=== PATIENT | male | born 1985 | race African-American/Black ===

== ENCOUNTER 2018-01-20 14:09 | Inpatient (IN) | payer OTHER ==
[2018-01-20 14:54] VITALS: BMI 19.1
--- NOTE | 2018-01-20 16:07 | HP ---
CIWA Score - CIWA Score Nausea/Vomitin Muscle Tremors: 1-None Visible, but [place] Anxiety: 3 Agitation: 1-Slight > Activity Paroxysmal Sweats: 3 Orientation: 0-Oriented Tacttile Disturbances: 0-None Auditory Disturbances: 2-Mild Harshness/Frighten Visual Disturbances: 0-None Headache: 3-Moderate CIWA-Ar Total Score: 15 Admission ROS S - HPI Chief Complaint: Etoh wtihdrawal symptoms. Allergies/Adverse Reactions: Allergies Allergy/AdvReac Type Severity Reaction Status Date / Time bupropion [From Wellbutrin] Allergy Severe Verified 01/20/18 16:04 divalproex sodium Allergy Severe Verified 01/20/18 16:04 [From Depakote] History of Present Illness: Patient is 32 year old man presenting with ETOH withdrawal symptoms. Patient started drinking at age 7 and drinks up to 2 pints of liquor daily.Last drink was this past night. Patient states this is his first detox attempt. Has hx of blackouts, seizures and has his first drink in the morning with his coffee. Last seizure 11/2017. Patient also smokes 20 dollars of crack/cocaine daily since 2006. Last time he smoke was 2 days ago. Hx of sniffing one bag of heroin every 6 months since 2008, Marajuana use daily since age 11, one 10 dollar bag a day. Last use 3 days ago, crystal meth use monthly, last use 3 days ago. Patient has pmh of HIV+ (noncompliant with medication x one month), schizophrenia and chronic back pain. Denies SI/HI. Attempted suicide in 2012 by pill overdose. Longest period of sobriety 2 years. Exam Limitations: No Limitations - Ebola screening Have you traveled outside of the country in the last 21 days: No Have you had contact with anyone from an Ebola affected area: No Have you been sick,other than usual withdrawal symptoms: No Do you have a fever: No - Review of Systems Constitutional: Night Sweats, Changes in sleep, Unintentional Wgt. Loss EENT: reports: No Symptoms Reported Respiratory: reports: No Symptoms reported Cardiac: reports: No Symptoms Reported GI: reports: Nausea, Poor Appetite, Poor Fluid Intake, Abdominal cramping : reports: Frequency (due to etoh intake) Musculoskeletal: reports: Back Pain, Muscle Pain Integumentary: reports: Sweating Neuro: reports: Seizure, Tremors Endocrine: reports: Unexplained Weight Loss Hematology: reports: No Symptoms Reported Psychiatric: reports: Orientated x3, Anxious, Depressed Patient History - Patient Medical History Hx Anemia: No Hx Asthma: No Hx Chronic Obstructive Pulmonary Disease (COPD): No Hx Cancer: No Hx Cardiac Disorders: No Hx Congestive Heart Failure: No Hx Hypertension: No Hx Hypercholesterolemia: No Hx Pacemaker: No HX Cerebrovascular Accident: No Hx Seizures: Yes (last 11/2017) Hx Dementia: No Hx Diabetes: No Hx Gastrointestinal Disorders: No Hx Liver Disease: No Hx Genitourinary Disorders: No Hx Sexually Transmitted Disorders: No Hx Renal Disease (ESRD): No Hx Thyroid Disease: No Hx Human Immunodeficiency Virus (HIV): Yes (diagnosed in 2012) Hx Hepatitis C: No Hx Depression: Yes Hx Suicide Attempt: Yes (2012, pill overdose) Hx Bipolar Disorder: No Hx Schizophrenia: Yes - Patient Surgical History Past Surgical History: Yes Hx Neurologic Surgery: No Hx Cataract Extraction: No Hx Cardiac Surgery: No Hx Lung Surgery: No Hx Breast Surgery: No Hx Breast Biopsy: No Hx Abdominal Surgery: No Hx Appendectomy: No Hx Cholecystectomy: No Hx Genitourinary Surgery: No Hx Orthopedic Surgery: No Other Surgical History: cyst removal,neck area Anesthesia Reaction: No - PPD History Previous Implant?: Yes Documented Results: Negative w/o proof PPD to be Administered?: Yes - Smoking Cessation Smoking history: Current every day smoker Have you smoked in the past 12 months: Yes Aproximately how many cigarettes per day: 10 Hx Chewing Tobacco Use: No Initiated information on smoking cessation: Yes 'Breaking Loose' booklet given: 01/20/18 - Substance & Tx. History Hx Alcohol Use: Yes Hx Substance Use: Yes Substance Use Type: Alcohol, Cocaine, Heroin, Marijuana Hx Substance Use Treatment: No - Substances Abused Alcohol Route: Oral Frequency: Daily Amount used: 2 PINTS LIQUOR Age of first use: 7 Date of Last Use: 01/19/18 Cocaine Route: Smoking Frequency: Daily Amount used: $20 AND UP Age of first use: 21 Date of Last Use: 01/18/18 Marijuana/Hashish Route: Smoking Frequency: Daily Amount used: $10 AND UP Age of first use: 11 Date of Last Use: 01/17/18 Heroin Route: Inhalation Frequency: 1-3 times last 30 days Amount used: 1 BAG Age of first use: 23 Date of Last Use: 01/17/18 CRYSTAL METH Route: Smoking Frequency: 1-3 times last 30 days Amount used: $120 AND UP Age of first use: 26 Date of Last Use: 01/15/18 Family Disease History - Family Disease History Family Disease History: Other: Mother (JOSSE, sober x 5 years) Admission Physical Exam [facility] - Vital Signs Vital Signs: Vital Signs - 24 hr 01/20/18 14:52 Temperature 97.2 F L Pulse Rate 96 H Respiratory 18 Rate Blood Pressure 131/89 - Physical General Appearance: Yes: Disheveled, Thin, Tremorous, Sweating, Anxious HEENTM: Yes: EOMI, Hearing grossly Normal, Normocephalic, Normal Voice, MELL, Pharynx Normal Respiratory: Yes: Chest Non-Tender, Lungs Clear, Normal Breath Sounds, No Respiratory Distress, No Accessory Muscle Use Neck: Yes: No masses,lesions,Nodules, Supple Breast: Yes: Breast Exam Deferred Cardiology: Yes: Regular Rhythm, Regular Rate, S1, S2 Abdominal: Yes: Normal Bowel Sounds, Non Tender, Flat, Soft Genitourinary: Yes: Within Normal Limits Back: Yes: Normal Inspection, Muscle Spasm Musculoskeletal: Yes: full range of Motion, Gait Steady Extremities: Yes: Normal Inspection, Normal Range of Motion, Non-Tender, Tremors 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 intact, Fully Oriented, Alert, Motor Strength 5/5, Depressed Affect Integumentary: Yes: Normal Color, Warm, Diaphoresis Lymphatic: Yes: Within Normal Limits - Diagnostic (1) Alcohol dependence with uncomplicated withdrawal Current Visit: Yes Status: Acute (2) Cocaine dependence Current Visit: Yes Status: Chronic Qualifiers: Substance use status: uncomplicated Qualified Code(s): F14.20 - Cocaine dependence, uncomplicated (3) Marijuana abuse Current Visit: Yes Status: Chronic (4) HIV (human immunodeficiency virus infection) Current Visit: Yes Status: Chronic (5) Schizophrenia Current Visit: Yes Status: Suspected Qualifiers: Schizophrenia type: unspecified Qualified Code(s): F20.9 - Schizophrenia, unspecified (6) Nicotine dependence Current Visit: Yes Status: Chronic Qualifiers: Nicotine product type: cigarettes (7) Methamphetamine abuse Current Visit: Yes Status: Chronic Cleared for Admission [facility] - Detox or Rehab [facility] Level of Care: Medically Managed Detox Regimen/Protocol: Librium [facility] Breath Alcohol Content Breath Alcohol Content: 0 Urine Drug Screen - Results Drug Screen Negative: No Urine Drug Screen Results: THC-Marijuana, SOURAV-Cocaine, AMP-Amphetamines, MET- Methamphetamine
[2018-01-20] MEDS ORDERED: MAGNESIUM HYDROX 2400MG/30ML ORAL SUSPENSION 30 ML CUP PO PRN (16:19)
[2018-01-20] MEDS ORDERED: LOPERAMIDE HCL 2 MG CAPSULE PO PRN (16:19)
[2018-01-20] MEDS ORDERED: hydrOXYzine PAMOATE 25 MG CAPSULE (FP) PO PRN (16:19)
[2018-01-20] MEDS ORDERED: MAG HYDROX/AL HYDROX/SIMETH 30 ML UNIT-DOSE CUP PO PRN (16:19)
[2018-01-20] MEDS ORDERED: P-EPHED 60MG/TRIPROLIDI 2.5MG TABLET PO PRN (16:19)
[2018-01-20] MEDS ORDERED: ACETAMINOPHEN 325 MG TABLET (FP) PO PRN (16:19)
[2018-01-20] MEDS ORDERED: MENTHOL/PHENOL 1 EACH UD MM PRN (16:19)
[2018-01-20] MEDS ORDERED: MAGNESIUM CITRATE 300 ML BOTTLE PO PRN (16:19)
[2018-01-20] MEDS ORDERED: guaiFENesin/D-METHORPHAN HB 10 ML UNIT-DOSE CUPS PO PRN (16:19)
[2018-01-20] MEDS ORDERED: NICOTINE POLACRILEX 2 MG GUM BC PRN (16:19)
[2018-01-20] MEDS ORDERED: IBUPROFEN 400 MG TABLET (FP) PO PRN (16:19)
[2018-01-20] MEDS ORDERED: chlordiazePOXIDE HCL 25 MG CAPSULE PO PRN (16:21)
[2018-01-20] MEDS ORDERED: MELATONIN 5 MG TABLETS PO PRN (22:00)
[2018-01-20] MEDS: THIAMINE HCL 100 MG TABLET (FP) PO SCH (22:19)
[2018-01-20] MEDS: chlordiazePOXIDE HCL 25 MG CAPSULE PO SCH (22:19)
[2018-01-21] MEDS: chlordiazePOXIDE HCL 25 MG CAPSULE PO SCH ×4 (05:44→22:31)
--- NOTE | 2018-01-21 09:38 | EKG ---
Test Reason : Blood Pressure : / mmHG Vent. Rate : 051 BPM Atrial Rate : 051 BPM P-R Int : 134 ms QRS Dur : 096 ms QT Int : 454 ms P-R-T Axes : 077 078 072 degrees QTc Int : 418 ms SINUS BRADYCARDIA MINIMAL VOLTAGE CRITERIA FOR LVH, MAY BE NORMAL VARIANT NO PREVIOUS ECGS AVAILABLE Confirmed by TEJINDER AMARO MD ([id number]) on 01/21/2018 9:38:17 AM Referred By: Confirmed By:TEJINDER AMARO MD
[2018-01-21] MEDS: PRENATAL VITAMINS W/ FOLIC ACID TABLET (FP) PO SCH (10:18)
[2018-01-21] MEDS: NICOTINE 21 MG/24 HOURS TOPICAL PATCH TD SCH (10:19)
[2018-01-21 11:00] LABS: HEMOGLOBIN 12.9 GM/dL (11.7-16.9); MCHC 32.2 g/dl (32.0-35.9); MEAN CELL VOLUME 96.2 fl (80-96); MEAN PLT VOLUME 7.8 fl (7.5-11.1); PLATELET COUNT 168 K/MM3 (134-434); RBC 4.16 M/mm3 (4.00-5.60); RDW 14.4 % (11.9-15.9); WHITE BLOOD COUNT 3.4 K/mm3 (4.0-10.0)
[2018-01-21 11:48] LABS: ALBUMIN 2.8 g/dl (3.4-5.0); ALK PHOS 88 U/L (45-117); ANION GAP 10 MMOL/L (8-16); BILIRUBIN,TOTAL 0.2 mg/dL (0.2-1); BLOOD UREA NITROGEN 16 mg/dL (7-18); CALCIUM 8.5 mg/dL (8.5-10.1); CHLORIDE 108 mmol/L (98-107); CO2 23 mmol/L (21-32); CREATININE 0.8 mg/dL (0.55-1.3); GLUCOSE,RANDOM 96 mg/dL (74-106); SGOT/AST 15 U/L (15-37); SGPT/ALT 21 U/L (13-61); SODIUM 141 mmol/L (136-145); TOT PROT 6.4 g/dl (6.4-8.2)
--- NOTE | 2018-01-21 15:37 | PN ---
S CIWA - CIWA Score Nausea/Vomitin Muscle Tremors: 4-Moderate,w/Arms Extend Anxiety: 4-Mod. Anxious/Guarded Agitation: 3 Paroxysmal Sweats: 3 Orientation: 0-Oriented Tacttile Disturbances: 0-None Auditory Disturbances: 0-None Visual Disturbances: 0-None Headache: 1-Very Mild CIWA-Ar Total Score: 18 BHS Progress Note (SOAP) Subjective: Interrupted sleep Objective: 01/21/18 15:35 Last Vital Signs Temp Pulse Resp BP Pulse Ox 97.2 F L 80 18 146/103 H 01/21/18 13:24 01/21/18 13:24 01/21/18 13:24 01/21/18 13:24 b/p noted 146/103 Laboratory Tests 01/21/18 01/21/18 01/21/18 07:00 07:00 07:00 WBC 3.4 L RBC 4.16 Hgb 12.9 Hct 40.0 MCV 96.2 H MCH 31.0 MCHC 32.2 RDW 14.4 Plt Count 168 MPV 7.8 Sodium 141 Potassium 4.0 Chloride 108 H Carbon Dioxide 23 Anion Gap 10 BUN 16 Creatinine 0.8 Creat Clearance w eGFR > 60 Random Glucose 96 Calcium 8.5 Total Bilirubin 0.2 AST 15 ALT 21 Alkaline Phosphatase 88 Total Protein 6.4 Albumin 2.8 L RPR Titer Nonreactive Labs reviewed Assessment: 01/21/18 15:36 Withdrawal sxs Noted with elevated blood pressure Plan: Continue detox Encouraged PO water hydration Elevated blood pressure: denies any h/o HTN; most likely r/t withdrawal, start clonidine 0.1mg PO q8hr prn, consider initiating routine antihypertensive treatment if warranted
[2018-01-21 17:36] LABS: URINE APPEARANCE TURBID; URINE BILIRUBIN NEGATIVE (<2.0 mg/dL); URINE GLUCOSE (UA) NEGATIVE (NEGATIVE); URINE KETONE NEGATIVE (NEGATIVE); URINE LEUK ESTERASE TRACE (NEGATIVE); URINE NITRITE NEGATIVE (NEGATIVE); URINE PROTEIN NEGATIVE (NEGATIVE)
[2018-01-21 17:45] LABS: URINE COLOR YELLOW
[2018-01-21 17:55] LABS: EPI CELLS RARE /HPF (FEW); URINE MUCUS MANY; YEAST FEW
[2018-01-21 18:04] LABS: CALCIUM OXALATE CRYSTALS 1+ /hpf (NONE SEEN)
--- NOTE | 2018-01-21 19:02 | CONSULT ---
[facility] Psychiatric Consult - Data Date of interview: 01/21/18 Admission source: [facility] Identifying data: First admission to [facility] for this 32 y/o AA male seeking detoxification treatment on 3 for alcohol,opioid,cocaine,metamphetamine and cannabis dependence.Patient is single without dependents,homeless (longterm), unemployed and supported on SSI benefits. Substance Abuse History: Confirmed by the patient in my interview.Details in this [facility] report : Smoking history: Current every day smoker. Have you smoked in the past 12 months: Yes. Aproximately how many cigarettes per day: 10. Hx Chewing Tobacco Use: No. Initiated information on smoking cessation: Yes. ' Breaking Loose' booklet given: 01/20/18. - Substance & Tx. History. Hx Alcohol Use: Yes. Hx Substance Use: Yes. Substance Use Type: Alcohol, Cocaine , Heroin, Marijuana. Hx Substance Use Treatment: No. - Substances Abused. Alcohol. Route: Oral. Frequency: Daily. Amount used: 2 PINTS LIQUOR. Age of first use: 7. Date of Last Use: 01/19/18. Cocaine. Route: Smoking. Frequency: Daily. Amount used: $20 AND UP. Age of first use: 21. Date of Last Use: 01/18/18. Marijuana/Hashish. Route: Smoking. Frequency: Daily. Amount used: $10 AND UP. Age of first use: 11. Date of Last Use: 01/17/18. * * Heroin. Route: Inhalation. Frequency: 1-3 times last 30 days. Amount used: 1 BAG. Age of first use: 23. Date of Last Use: 01/17/18. CRYSTAL METH. Route: Smoking. Frequency: 1-3 times last 30 days. Amount used: $120 AND UP. Age of first use: 26. Date of Last Use: 01/15/18 Medical History: HIV infection since 2012,antecedent of withdrawal-related seizures,chronic lumbar pain and a history of surgery (excision if cyst in neck) . Psychiatric History: Diagnosed with Schizophrenia. Patient reports a history of multiple psychiatric hospitalizations ([facility]). Mr Quinonez declares that he is prescribed seroquel 200 mg/hs (in spite of self-report of absence of OPD care providers). Last visit to [facility]PD clinic in [facility] : four months ago, according to the patient. [place] one suicide attempt (2011) via deliberate overdose with medications. Physical/Sexual Abuse/Trauma History: Patient denies. Additional Comment: Urine Drug Screen Results: THC-Marijuana, SOURAV-Cocaine, AMP- Amphetamines, MET-Methamphetamine.Noted. Mental Status Exam - Mental Status Exam Alert and Oriented to: Time, Place, Person Cognitive Function: Good Patient Appearance: Well Groomed Mood: Withdrawn, Anxious Affect: Mood Congruent Patient Behavior: Fatigued, Cooperative Speech Pattern: Clear Voice Loudness: Normal Thought Process: Goal Oriented Thought Disorder: Not Present Hallucinations: Denies Suicidal Ideation: Denies Homicidal Ideation: Denies Insight/Judgement: Poor Sleep: Poorly, Difficulty falling asleep Appetite: Good Muscle strength/Tone: Normal Gait/Station: Normal Psychiatric Findings - Problem List ([place] 1, 2,3) (1) Alcohol dependence with uncomplicated withdrawal Current Visit: Yes Status: Acute (2) Opioid dependence Current Visit: Yes Status: Acute (3) Cocaine dependence Current Visit: Yes Status: Acute Qualifiers: Substance use status: uncomplicated Qualified Code(s): F14.20 - Cocaine dependence, uncomplicated (4) Methamphetamine abuse Current Visit: Yes Status: Acute (5) Marijuana abuse Current Visit: Yes Status: Chronic (6) Nicotine dependence Current Visit: Yes Status: Acute Qualifiers: Nicotine product type: cigarettes (7) Substance induced mood disorder Current Visit: Yes Status: Acute (8) Schizophrenia Current Visit: Yes Status: Chronic (9) Non-compliant patient Current Visit: Yes Status: Acute (10) Non-compliance Current Visit: Yes Status: Acute (11) Insomnia Current Visit: Yes Status: Acute - Initial Treatment Plan Initial Treatment Plan: Psyhoeducation.Sleep hygiene.Detoxification.Will resume seroquel at 100 mg po hs.Side effects/benefits disussed with the patient. Mr Quinonez is in agreement with this plan of care.Observation.
[2018-01-21] MEDS ORDERED: cloNIDine HCL 0.1 MG TABLET PO ONE (20:25)
--- NOTE | 2018-01-21 20:27 | PN ---
[facility] Progress Note Note: A&O x3. Ambulatory. Denies ANTUNEZ/CP. Vital Signs 01/21/18 01/21/18 13:24 18:00 Temperature 97.2 F L 97.8 F Pulse Rate 80 80 Respiratory 18 16 Rate Blood Pressure 146/103 H 136/92 Current: 153/105 (L) 152/115 (R) Clonidine 0.2 mg Once. Continue to monitor.
[2018-01-21] MEDS: THIAMINE HCL 100 MG TABLET (FP) PO SCH (22:31)
[2018-01-21] MEDS: QUEtiapine FUMARATE 100 MG TABLET (FP) PO SCH (22:32)
[2018-01-22] MEDS: chlordiazePOXIDE HCL 25 MG CAPSULE PO SCH ×3 (05:18→17:49)
[2018-01-22] MEDS: PRENATAL VITAMINS W/ FOLIC ACID TABLET (FP) PO SCH (10:18)
[2018-01-22] MEDS: NICOTINE 21 MG/24 HOURS TOPICAL PATCH TD SCH (10:18)
[2018-01-22] MEDS: CYCLOBENZAPRINE HCL 5 MG TABLET PO SCH ×2 (13:59→22:23)
[2018-01-22] MEDS: LIDOCAINE 5% TOPICAL PATCH TP SCH (13:59)
--- NOTE | 2018-01-22 15:17 | PN ---
[facility] CIWA - CIWA Score Nausea/Vomitin-No Nausea/No Vomiting Muscle Tremors: 2 Anxiety: 2 Agitation: 2 Paroxysmal Sweats: 2 Orientation: 0-Oriented Tacttile Disturbances: 1-Very Mild Itch/Numbness Auditory Disturbances: 0-None Visual Disturbances: 1-Very Mild Sensitivity Headache: 0-None Present CIWA-Ar Total Score: 10 S Progress Note (SOAP) Subjective: bilateral shoulder pain with tightness, interrupted sleep, chills , sweats Objective: 01/22/18 15:17 Vital Signs Temperature 96.3 F L 01/22/18 13:33 Pulse Rate 83 01/22/18 13:33 Respiratory Rate 18 01/22/18 13:33 Blood Pressure 139/100 01/22/18 13:33 O2 Sat by Pulse Oximetry (%) Laboratory Last Values WBC 3.4 K/mm3 (4.0-10.0) L 01/21/18 07:00 RBC 4.16 M/mm3 (4.00-5.60) 01/21/18 07:00 Hgb 12.9 GM/dL (11.7-16.9) 01/21/18 07:00 Hct 40.0 % (35.4-49) 01/21/18 07:00 MCV 96.2 fl (80-96) H 01/21/18 07:00 MCH 31.0 pg (25.7-33.7) 01/21/18 07:00 MCHC 32.2 g/dl (32.0-35.9) 01/21/18 07:00 RDW 14.4 % (11.9-15.9) 01/21/18 07:00 Plt Count 168 K/MM3 (134-434) 01/21/18 07:00 MPV 7.8 fl (7.5-11.1) 01/21/18 07:00 Sodium 141 mmol/L (136-145) 01/21/18 07:00 Potassium 4.0 mmol/L (3.5-5.1) 01/21/18 07:00 Chloride 108 mmol/L (98-107) H 01/21/18 07:00 Carbon Dioxide 23 mmol/L (21-32) 01/21/18 07:00 Anion Gap 10 MMOL/L (8-16) 01/21/18 07:00 BUN 16 mg/dL (7-18) 01/21/18 07:00 Creatinine 0.8 mg/dL (0.55-1.3) 01/21/18 07:00 Creat Clearance w eGFR > 60 (>60) 01/21/18 07:00 Random Glucose 96 mg/dL (74-106) 01/21/18 07:00 Calcium 8.5 mg/dL (8.5-10.1) 01/21/18 07:00 Total Bilirubin 0.2 mg/dL (0.2-1) 01/21/18 07:00 AST 15 U/L (15-37) 01/21/18 07:00 ALT 21 U/L (13-61) 01/21/18 07:00 Alkaline Phosphatase 88 U/L (45-117) 01/21/18 07:00 Total Protein 6.4 g/dl (6.4-8.2) 01/21/18 07:00 Albumin 2.8 g/dl (3.4-5.0) L 01/21/18 07:00 Urine Color Yellow 01/21/18 16:30 Urine Appearance Turbid 01/21/18 16:30 Urine pH 5.0 (5.0-8.0) 01/21/18 16:30 Ur Specific [place] 1.027 (1.010-1.035) 01/21/18 16:30 Urine Protein Negative (NEGATIVE) 01/21/18 16:30 Urine Glucose (UA) Negative (NEGATIVE) 01/21/18 16:30 Urine Ketones Negative (NEGATIVE) 01/21/18 16:30 Urine Blood Negative (NEGATIVE) 01/21/18 16:30 Urine Nitrite Negative (NEGATIVE) 01/21/18 16:30 Urine Bilirubin Negative (<2.0 mg/dL) 01/21/18 16:30 Urine Urobilinogen 2.0 mg/dL (0.2-1.0) 01/21/18 16:30 Ur Leukocyte Esterase Trace (NEGATIVE) 01/21/18 16:30 Urine WBC (Auto) 40-60 /hpf (3-5) 01/21/18 16:30 Urine RBC (Auto) 2-5 /hpf (0-3) 01/21/18 16:30 Ur Epithelial Cells Rare /HPF (FEW) 01/21/18 16:30 Calcium Oxalate Crystal 1+ /hpf (NONE SEEN) 01/21/18 16:30 Urine Mucus Many 01/21/18 16:30 Urine Yeast Few 01/21/18 16:30 RPR Titer Nonreactive (NONREACTIVE) 01/21/18 07:00 AOx3 no adventitious breath sounds full ROM, no joint effusion or erythema withdrawal sx b/t shoulder pain increase Po fluids flexeril PRN lidocaine patch continue detox continue to monitor
[2018-01-22] MEDS: THIAMINE HCL 100 MG TABLET (FP) PO SCH (22:23)
[2018-01-22] MEDS: QUEtiapine FUMARATE 100 MG TABLET (FP) PO SCH (22:23)
[2018-01-22] MEDS: chlordiazePOXIDE 5 MG CAPSULE PO SCH (22:23)
[2018-01-22] MEDS: LIDOCAINE PATCH REMOVAL MC SCH (23:52)
[2018-01-23] MEDS: chlordiazePOXIDE 5 MG CAPSULE PO SCH ×3 (05:52→17:40)
[2018-01-23] MEDS: CYCLOBENZAPRINE HCL 5 MG TABLET PO SCH ×3 (05:53→22:37)
[2018-01-23] MEDS: cloNIDine HCL 0.1 MG TABLET PO PRN ×2 (10:13→22:38)
[2018-01-23] MEDS: NICOTINE 21 MG/24 HOURS TOPICAL PATCH TD SCH (10:13)
[2018-01-23] MEDS: PRENATAL VITAMINS W/ FOLIC ACID TABLET (FP) PO SCH (10:13)
[2018-01-23] MEDS: LIDOCAINE 5% TOPICAL PATCH TP SCH (10:14)
--- NOTE | 2018-01-23 12:38 | PN ---
[facility] Progress Note (SOAP) Subjective: Interrupted sleep, low back pain Objective: 01/23/18 12:37 Vital Signs - 8 hr 01/23/18 01/23/18 06:41 09:20 Temperature 97.8 F 97.0 F L Pulse Rate 69 90 Respiratory 18 20 Rate Blood Pressure 137/96 140/105 H Laboratory Last Values WBC 3.4 K/mm3 (4.0-10.0) L 01/21/18 07:00 RBC 4.16 M/mm3 (4.00-5.60) 01/21/18 07:00 Hgb 12.9 GM/dL (11.7-16.9) 01/21/18 07:00 Hct 40.0 % (35.4-49) 01/21/18 07:00 MCV 96.2 fl (80-96) H 01/21/18 07:00 MCH 31.0 pg (25.7-33.7) 01/21/18 07:00 MCHC 32.2 g/dl (32.0-35.9) 01/21/18 07:00 RDW 14.4 % (11.9-15.9) 01/21/18 07:00 Plt Count 168 K/MM3 (134-434) 01/21/18 07:00 MPV 7.8 fl (7.5-11.1) 01/21/18 07:00 Sodium 141 mmol/L (136-145) 01/21/18 07:00 Potassium 4.0 mmol/L (3.5-5.1) 01/21/18 07:00 Chloride 108 mmol/L (98-107) H 01/21/18 07:00 Carbon Dioxide 23 mmol/L (21-32) 01/21/18 07:00 Anion Gap 10 MMOL/L (8-16) 01/21/18 07:00 BUN 16 mg/dL (7-18) 01/21/18 07:00 Creatinine 0.8 mg/dL (0.55-1.3) 01/21/18 07:00 Creat Clearance w eGFR > 60 (>60) 01/21/18 07:00 Random Glucose 96 mg/dL (74-106) 01/21/18 07:00 Calcium 8.5 mg/dL (8.5-10.1) 01/21/18 07:00 Total Bilirubin 0.2 mg/dL (0.2-1) 01/21/18 07:00 AST 15 U/L (15-37) 01/21/18 07:00 ALT 21 U/L (13-61) 01/21/18 07:00 Alkaline Phosphatase 88 U/L (45-117) 01/21/18 07:00 Total Protein 6.4 g/dl (6.4-8.2) 01/21/18 07:00 Albumin 2.8 g/dl (3.4-5.0) L 01/21/18 07:00 Urine Color Yellow 01/21/18 16:30 Urine Appearance Turbid 01/21/18 16:30 Urine pH 5.0 (5.0-8.0) 01/21/18 16:30 Ur Specific [place] 1.027 (1.010-1.035) 01/21/18 16:30 Urine Protein Negative (NEGATIVE) 01/21/18 16:30 Urine Glucose (UA) Negative (NEGATIVE) 01/21/18 16:30 Urine Ketones Negative (NEGATIVE) 01/21/18 16:30 Urine Blood Negative (NEGATIVE) 01/21/18 16:30 Urine Nitrite Negative (NEGATIVE) 01/21/18 16:30 Urine Bilirubin Negative (<2.0 mg/dL) 01/21/18 16:30 Urine Urobilinogen 2.0 mg/dL (0.2-1.0) 01/21/18 16:30 Ur Leukocyte Esterase Trace (NEGATIVE) 01/21/18 16:30 Urine WBC (Auto) 40-60 /hpf (3-5) 01/21/18 16:30 Urine RBC (Auto) 2-5 /hpf (0-3) 01/21/18 16:30 Ur Epithelial Cells Rare /HPF (FEW) 01/21/18 16:30 Calcium Oxalate Crystal 1+ /hpf (NONE SEEN) 01/21/18 16:30 Urine Mucus Many 01/21/18 16:30 Urine Yeast Few 01/21/18 16:30 RPR Titer Nonreactive (NONREACTIVE) 01/21/18 07:00 Labs noted Assessment: 01/23/18 12:37 Withdrawal sx Plan: Continue detox
[2018-01-23] MEDS: QUEtiapine FUMARATE 100 MG TABLET (FP) PO SCH (22:37)
[2018-01-23] MEDS: chlordiazePOXIDE HCL 10 MG CAPSULE PO SCH (22:38)
[2018-01-23] MEDS: THIAMINE HCL 100 MG TABLET (FP) PO SCH (22:38)
[2018-01-23] MEDS: LIDOCAINE PATCH REMOVAL MC SCH (22:38)
[2018-01-24] MEDS: CYCLOBENZAPRINE HCL 5 MG TABLET PO SCH (06:05)
[2018-01-24] MEDS: chlordiazePOXIDE HCL 10 MG CAPSULE PO SCH ×2 (06:05→10:09)
[2018-01-24 09:14] VITALS: BP 131/84; PULSE 88; TEMP 97.4
[2018-01-24] MEDS: LIDOCAINE 5% TOPICAL PATCH TP SCH (10:08)
[2018-01-24] MEDS: NICOTINE 21 MG/24 HOURS TOPICAL PATCH TD SCH (10:08)
[2018-01-24] MEDS: PRENATAL VITAMINS W/ FOLIC ACID TABLET (FP) PO SCH (10:08)
--- NOTE | 2018-01-24 13:05 | PN ---
S Progress Note (SOAP) Subjective: Denies any complains Objective: 01/24/18 13:02 A& O x 3 In no distress Vital Signs Temperature 97.4 F L 01/24/18 09:12 Pulse Rate 88 01/24/18 09:12 Respiratory Rate 18 01/24/18 09:12 Blood Pressure 131/84 01/24/18 09:12 O2 Sat by Pulse Oximetry (%) Assessment: 01/24/18 13:03 detox completed Plan: for discharge
--- NOTE | 2018-01-24 13:07 | DS ---
[facility] Detox Discharge Summary Admission Date: 01/20/18 Discharge Date: 01/24/18 - History Additional Comments: Pt for discharge Will do aftercare rehab at Replaced by [facility], pt will call them tomorrow Pertinent Past History: HIV - Physical Exam Results Vital Signs: Vital Signs Temperature 97.4 F L 01/24/18 09:12 Pulse Rate 88 01/24/18 09:12 Respiratory Rate 18 01/24/18 09:12 Blood Pressure 131/84 01/24/18 09:12 O2 Sat by Pulse Oximetry (%) Pertinent Admission Physical Exam Findings: withdrawal - Treatment Hospital Course: Detox Protocol Followed, Detoxed Safely, Responded well, Discharged Condition Good - Medication Discharge Medications: Ambulatory Orders Quetiapine Fumarate [Seroquel -] 200 mg PO HS 01/20/18 Elviteg/Cob/Emtri/Tenof Alafen [Genvoya Tablet] 1 each PO DAILY #30 tablet 01/24 Naproxen [Naprosyn -] 500 mg PO BID #30 tablet 01/24/18 - Diagnosis (1) Alcohol dependence with uncomplicated withdrawal Status: Acute (2) Cocaine dependence Status: Acute Qualifiers: Substance use status: uncomplicated Qualified Code(s): F14.20 - Cocaine dependence, uncomplicated (3) Elevated blood pressure reading without diagnosis of hypertension Status: Acute (4) Insomnia Status: Acute (5) Methamphetamine abuse Status: Acute (6) Nicotine dependence Status: Acute Qualifiers: Nicotine product type: cigarettes (7) Substance induced mood disorder Status: Acute (8) HIV (human immunodeficiency virus infection) Status: Chronic (9) Marijuana abuse Status: Chronic (10) Schizophrenia Status: Chronic Qualifiers: Schizophrenia type: unspecified Qualified Code(s): F20.9 - Schizophrenia, unspecified (11) Schizophrenia Status: Chronic - AMA Did Patient Leave Against Medical Advice: No
== END 2018-01-24 11:45 | disposition home or self-care (01) | DRG 773 ==
LOC: YASAS 14:09 → Y3N 17:45
PROC: HZ2ZZZZ Detoxification Services for Substance Abuse Treatment (ICD-10-PCS; principal; 2018-01-20)
DX: F11.23 Opioid dependence with withdrawal (principal); F10.230 Alcohol dependence with withdrawal, uncomplicated; F14.20 Cocaine dependence, uncomplicated; F15.10 Other stimulant abuse, uncomplicated; F12.10 Cannabis abuse, uncomplicated; F17.210 Nicotine dependence, cigarettes, uncomplicated; F19.24 Other psychoactive substance dependence with psychoactive substance-induced mood disorder; F20.9 Schizophrenia, unspecified; Z21 Asymptomatic human immunodeficiency virus [HIV] infection status; G47.00 Insomnia, unspecified; R03.0 Elevated blood-pressure reading, without diagnosis of hypertension; Z91.19 Patient's noncompliance with other medical treatment and regimen; Z91.5 Personal history of self-harm
CPT/HCPCS: 36415; 80053; 81003; 81015; 85027; 86593; 93005; 93010; J0735